=== PATIENT | female | born 1985 | race Caucasian/White ===

== ENCOUNTER → 2016-03-23 | Outpatient (CLI) | payer OTHER | LOC: RAD 14:52 | PROVIDERS: ATTEND Obstetrics & Gynecology | DX: R10.2 Pelvic and perineal pain (principal) | CPT/HCPCS: 76830; 76856 ==

== ENCOUNTER 2016-04-06 05:09 | Emergency (ER) | payer OTHER ==
[~2016-04-06] VITALS: Ht 170.2 cm; Wt 65.4 kg
[2016-04-06] MEDS ORDERED: SODIUM CHLORIDE FLUSH 10 ML SYR IV PRN (05:40)
[2016-04-06] MEDS ORDERED: SODIUM CHLORIDE FLUSH 3 ML SYR IV PRN (05:40)
[2016-04-06 05:45] LABS: BASOPHILS % (AUTO) 0 % (0-2); EOSINOPHILS # (AUTO) 0.1 10^3uL; EOSINOPHILS % (AUTO) 1 % (0-4); LYMPHOCYTES # (AUTO) 2.1 X10^3; MEAN CORPUSCULAR HEMOGLOBIN 31.1 PG (26.0-34.0); MEAN CORPUSCULAR VOLUME 84 FL (80-100); MEAN PLATELET VOLUME 10.5 FL (6.0-9.5); MONOCYTES # (AUTO) 0.6 X10^3; MONOCYTES % (AUTO) 8 % (3-11); NEUTROPHILS # (AUTO) 4.5 X10^3; NEUTROPHILS % (AUTO) 62 % (51-67); PLATELET COUNT 278 10^3uL (150-450); WHITE BLOOD COUNT 7.26 10^3uL (4.0-11.0)
[2016-04-06 05:49] LABS: MEAN CORPUSCULAR HGB CONC 37.2 g/dL (31.0-37.0)
[2016-04-06 05:52] LABS: ALKALINE PHOSPHATASE 70 U/L (38-126); ANION GAP 18.2 MEQ/L (3-15); BUN/CREATININE RATIO 18 (10-20); CREATINE KINASE 48 U/L (30-135); TOTAL PROTEIN 8.5 g/dL (6.4-8.5)
[2016-04-06 06:18] VITALS: BP 131/85
== END 2016-04-06 06:30 | disposition home or self-care (01) ==
LOC: ED 05:09
DX: R00.2 Palpitations (principal); R07.9 Chest pain, unspecified; Z87.891 Personal history of nicotine dependence
CPT/HCPCS: 36415; 71010; 80053; 82550; 82553; 84484; 85025; 85610; 85730; 93005; 93010; 99284; 99285